=== PATIENT | male | born 1985 | race Caucasian/White ===

== ENCOUNTER 2017-02-20 22:02 | Emergency (ER) | payer OTHER ==
[2017-02-21 00:14] VITALS: BP 128/89
== END 2017-02-20 23:40 | disposition home or self-care (01) ==
LOC: ED 22:02
DX: S00.532A Contusion of oral cavity, initial encounter (principal); S00.511A Abrasion of lip, initial encounter; M25.512 Pain in left shoulder; F12.90 Cannabis use, unspecified, uncomplicated; Y04.0XXA Assault by unarmed brawl or fight, initial encounter; Y93.89 Activity, other specified; Y99.8 Other external cause status; Y92.89 Other specified places as the place of occurrence of the external cause
CPT/HCPCS: J1885; Q0092